=== PATIENT | male | born 1990 | race American Indian/Alaskan Native ===

== ENCOUNTER 2021-09-11 23:35 | Emergency (ER) | payer SELFPAY ==
[2021-09-12] MEDS ORDERED: CLINDAMYCIN 300 MG CAP PO NR (02:44)
[2021-09-12] MEDS ORDERED: IBUPROFEN 600 MG TAB PO NR (02:44)
[2021-09-12] MEDS ORDERED: CYCLOBENZAPRINE 10 MG TAB PO NR (02:45)
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
[2021-09-12 03:34] VITALS: BP 127/75
== END 2021-09-12 03:34 | disposition home or self-care (01) ==
LOC: ED 23:35
DX: S00.531A Contusion of lip, initial encounter (principal); M79.662 Pain in left lower leg; M79.661 Pain in right lower leg; V89.2XXA Person injured in unspecified motor-vehicle accident, traffic, initial encounter; Y93.89 Activity, other specified; Y92.89 Other specified places as the place of occurrence of the external cause; Y99.8 Other external cause status
CPT/HCPCS: 99282